=== PATIENT | female | born 1995 | race Caucasian/White ===

== ENCOUNTER 2017-03-02 12:42 | Emergency (ER) | payer OTHER ==
[~2017-03-02] VITALS: Ht 175.3 cm; Wt 61.0 kg
[2017-03-02 13:07] VITALS: BP 133/84; PULSE 56; RESP 16; O2SAT 100
[2017-03-02 15:22] LABS: BASOPHILS % (AUTO) 0.1 % (0-3); EOSINOPHILS % (AUTO) 0 % (0-5); MONOCYTES % (AUTO) 3.2 % (4-12); Mean Corpuscular Hemoglobin 30.8 pg (27.0-35.0); Mean Corpuscular Volume 91.5 fL (81-100); NEUTROPHILS % (AUTO) 89.5 % (40-74); Platelet Count 299 bil/L (150-400)
--- NOTE | 2017-03-02 15:41 | ED.REPORT ---
HPI-Abd Pain F Under 40 Date of Service Mar 02, 2017 ED Provider: Be Mcneill DO The pt is a 21 y/o female with a hx of GERD (with 6 day hospitalization in [place] 7 months ago ) who presents to the ED complaining of severe burning sensation in the throat, onset 2 days ago. Her sx are similar to the last time she was hospitalized for GERD. Associated sx include nausea, vomiting, diaphoresis, diarrhea, shaking and shortness of breath. The pt was seen at [facility] 2 days ago for vomiting and increased heart rate. Her WBC was elevated at that time. She was diagnosed with gastroenteritis and discharged after IV fluids. She felt better yesterday but vomited again this morning. She denies dysuria and abnormal vaginal discharge. She has been taking Pepto twice a day for the last two days, with little relief. Nursing Notes Stated Complaint: ABD PAIN Chief Complaint: General Complaint Nursing Notes Reviewed: Yes Allergies: Coded Allergies: No Known Allergies (Unverified , 03/02/17) Scheduled Famotidine Susp (Pepcid Susp) 40 Mg/5 Ml Oral.susp 40 MG PO BID Pantoprazole DR (Protonix) 40 Mg Tablet 40 MG PO BID twice daily for 7 days, then once daily Sucralfate Susp (Carafate Susp) 1 Gm/10 Ml Oral.susp 1 GM PO QID Scheduled PRN Ondansetron ODT (Zofran ODT) 4 Mg Tablet 4 MG PO Q4H PRN PRN For Nausea General Time Seen by MD: 15:40 Chief Complaint Other (burning sensation in the throat) Hx Obtained From: Patient Arrived By: Walk-in Sudden in Onset?: Yes Onset Occurred: 2 days ago Symptom Duration: Since onset Location: : Diffuse Quality: Painful Radiation: : Does not radiate Severity: Current: Mild Severity: Maximum: Moderate Recent Healthcare: Recent doctor visit Similar Sx Previous: Yes Past Medical History Past Medical History Reports: GERD Past Surgical History none reported Smoking History Unknown if Ever Smoker Social History Alcohol Use: 1-3 per week Drug Use: THC Ambulatory Status Independent Review of Systems Reports: burning sensation in the throat Respiratory: Reports: Shortness of breath GI: Reports: Abdominal pain, Diarrhea, Nausea, Vomiting Female: Denies: Dysuria, Vaginal discharge Complete sys rev & neg: except as marked. Skin: Reports Diaphoresis Neurologic: Reports: Shaking Physical Exam Initial Vital Signs Vital Signs (First) Date Time Temp Pulse Resp B/P Pulse Ox O2 Delivery O2 Flow Rate FiO2 03/02/17 13:07 36.9 56 16 133/84 100 03/02/17 16:06 Room Air Initial VS: Reviewed Head / Eyes: Atraumatic, Normocephalic Neck: Supple, Non-tender, Full range of motion Extremities: Vascular intact, Neuro intact, No swelling, No tenderness Skin: Warm, Dry, No cyanosis Neurologic: Alert, Oriented, Nonfocal General/Constitutional: Awake, Alert, Well appearing, Cooperative Distress / Hydration: Positive: Distress mild Respiratory / Chest: Atraumatic, Breath sounds NL, Breath sounds = bilat, No respiratory distress, No rales, No rhonchi, No wheezing Cardiovascular: Heart rate NL, Regular rhythm, Heart sounds NL, No gallop, No murmurs, No rubs Abdomen: Atraumatic, Soft, Non-tender, No guarding, No rebound Back: Atraumatic, Full range of motion, Painless range of motion Interpretation & Diagnostics Lab Results Interpretation Result Diagram: 03/02/17 1519 03/02/17 1519 Test 03/02/17 14:40 03/02/17 15:19 Hold Urine Received (Received) White Blood Count 10.1th/mm3 (3.8-10.1) Red Blood Count 4.97mil/mm3 (3.90-5.20) Hemoglobin 15.3g/dL (12.0-15.6) Hematocrit 45.5% (35.0-46.0) Mean Corpuscular Volume 91.5fL (81-100) Mean Corpuscular Hemoglobin 30.8pg (27.0-35.0) Mean Corpuscular Hemoglobin Concent 33.6% (32.0-37.0) Red Cell Distribution Width 14.1% (12.3-15.4) Platelet Count 299bil/L (150-400) Neutrophils (%) (Auto) 89.5% (40-74) Lymphocytes (%) (Auto) 7.0% (14-46) Monocytes (%) (Auto) 3.2% (4-12) Eosinophils (%) (Auto) 0% (0-5) Basophils (%) (Auto) 0.1% (0-3) Sodium Level 137mEq/L (134-144) Potassium Level 4.0mEq/L (3.5-5.2) Chloride Level 98mEq/L (97-108) Carbon Dioxide Level 20mmol/L (18-29) Blood Urea Nitrogen 11mg/dL (6-20) Creatinine 0.71mg/dL (0.57-1.00) Estimat Glomerular Filtration Rate 149mL/min (>59) Glucose Level 95mg/dL (60-99) Calcium Level 10.0mg/dL (8.5-10.1) Magnesium Level 1.9mg/dL (1.6-2.6) Total Bilirubin 0.7mg/dL (0.0-1.2) Aspartate Amino Transf (AST/SGOT) 21U/L (0-50) Alanine Aminotransferase (ALT/SGPT) 16U/L (0-32) Alkaline Phosphatase 69U/L (25-150) Total Protein 8.5g/dL (6.4-8.4) Albumin 4.9g/dL (3.4-5.0) Lipase 25U/L (13-60) Re-Eval/Medical Decision Med Decision/Clinical Course Med Decision/Clinical Course: Labs vital signs physical examination history are reassuring. I do not suspect any emergent or life-threatening pathology. Patient tolerated a Popsicle in the ER. Will be discharged on medication for probable peptic ulcer disease. Return and follow-up precautions given Source of Hx: Old records Re-Evaluation/Progress #1: Time of Eval: 17:55 Re-Evaluation/Progress Note: Rechecked pt. She doesn't feel comfortable being discharged as she is still experiencing burning in her throat. Re-Evaluation/Progress #2: Time of Eval: 18:25 Re-Evaluation/Progress Note: Rechecked pt. Discussed lab results, diagnosis and plan to discharge. Pt understands and agrees with the plan. F/U instruction and RTER warning given. All questions addressed Counseled Regarding: Diagnosis, Lab results, Need for follow-up, When/why to return to ED Discharge & Departure Primary Impression: Epigastric pain Disposition: Home Discharge Condition All VS Reviewed: Yes Condition: Stable Additional Instructions: Your labs are reassuring. Take Carafate, Pepcid, and Protonix twice a day along with Zofran. Use liquid antacids as needed for acid reflux symptoms. Follow up with your regular doctor in the next few days. Return to the ER as needed if worse. Referrals: Jacquie Pringle MD Scribe Attestation Portions of this note were transcribed by Hazel Bourne. I,, personally performed the history,physical exam and medical decision-making;I reviewed and confirmed the accuracy of the information in the transcribed note. Signed by Ck Clark. 03/02/17 Be Mcneill DO Mar 02, 2017 15:40 Hazel Bourne Mar 02, 2017 15:48
[2017-03-02] MEDS ORDERED: Ondansetron 2 mg/mL 2 mL Inj IVPUSH PRN (15:45)
[2017-03-02] MEDS ORDERED: LidocaineVisc 2%:Antacid 1:1 10 mL Syringe PO ONE (15:45)
[2017-03-02] MEDS ORDERED: 0.9% Sodium Chloride 1,000 ML IV ONE (15:45)
[2017-03-02 15:46] LABS: Magnesium 1.9 mg/dL (1.6-2.6)
[2017-03-02 16:06] VITALS: BP 140/98; PULSE 58; O2SAT 100
[2017-03-02] MEDS ORDERED: Pantoprazole 4 mg/mL 10 mL Inj IVPUSH ONE (16:25)
[2017-03-02] MEDS ORDERED: Famotidine Inj 20 MG in IV Premix 1 EACH IV ONE (16:25)
[2017-03-02] MEDS ORDERED: FAMO40OR PO (16:45)
[2017-03-02] MEDS ORDERED: SUCR1ORA2 PO (16:45)
[2017-03-02] MEDS ORDERED: ONDA4TAB9 PO (16:45)
[2017-03-02] MEDS ORDERED: PANT40TA2 PO (16:45)
[2017-03-02 18:35] VITALS: BP 138/85; PULSE 54; O2SAT 99
== END 2017-03-02 18:37 | disposition home or self-care (01) ==
LOC: SED 12:42
DX: R10.13 Epigastric pain (principal); K21.9 Gastro-esophageal reflux disease without esophagitis
CPT/HCPCS: 36415; 80053; 81025; 83690; 83735; 85025; 96361; 96374; 96375; 99285; J2405; J3490; J7030; S0164